=== PATIENT | female | born 1960 | race Caucasian/White ===

== ENCOUNTER 2019-09-14 21:17 | Emergency (ER) | payer OTHER ==
[~2019-09-14] VITALS: Ht 165.1 cm; Wt 73.9 kg
[~2019-09-14 21:17] MED LIST: LEVOXYL125 MCG PO; LEXAPRO20 MG PO; NORCO 5-325 TA1 EACH PO; PREVACID30 MG PO; TAMOXIFEN CITRA20 MG PO; VITAMIN D1000 UNIT PO; WELLBUTRIN SR150 MG PO
--- OUTSIDE RECORDS SUMMARY | 2019-09-14 21:22 | XMS ---
PreManage Notification: KEIRA LINK Security Manager Residential Events No recent Security Events currently on file [facility] There are no care providers on record at this time. Therese has no Care Guidelines for this patient. [place] VISIT COUNT (12 MO.) 1 AVTAR Cook TOTAL 1 NOTE: Visits indicate total known visits. ED/UCC VISIT TRACKING (12 MO.) 09/14/2019 21:18 AVTAR Reyes OR TYPE: Emergency COMPLAINT: - R HIP PAIN/INJ INPATIENT VISIT TRACKING (12 MO.) No inpatient visits to display in this time frame [email or web address]
[2019-09-14] MEDS ORDERED: ALPRAZOLAM0.5 MG PO (21:34)
[2019-09-14] MEDS ORDERED: EXEMESTANE25 MG PO (21:34)
[2019-09-14] MEDS ORDERED: BUPROPION XL150 MG PO (21:34)
[2019-09-14] MEDS ORDERED: DIAZEPAM5 MG PO (21:35)
[2019-09-14] MEDS ORDERED: ESCITALOPRAM OX20 MG PO (21:36)
[2019-09-14] MEDS ORDERED: VENTOLIN HFA18 GM INH (21:38)
[2019-09-14] MEDS ORDERED: LIOTHYRONINE SO5 MCG PO (21:38)
[2019-09-14] MEDS ORDERED: LEVOTHYROXINE112 MCG PO (21:38)
[2019-09-14] MEDS ORDERED: CETIRIZINE HCL10 MG PO (21:39)
== END 2019-09-14 23:10 | disposition home or self-care (01) ==
LOC: ED 21:17
DX: S70.01XA Contusion of right hip, initial encounter (principal); E03.9 Hypothyroidism, unspecified; K21.9 Gastro-esophageal reflux disease without esophagitis; Z87.891 Personal history of nicotine dependence; Z88.0 Allergy status to penicillin; Z88.2 Allergy status to sulfonamides; Z79.899 Other long term (current) drug therapy; X58.XXXA Exposure to other specified factors, initial encounter
CPT/HCPCS: 73502; 99283-25

== ENCOUNTER 2022-07-29 12:47 | Day surgery (SDC) | payer OTHER ==
[~2022-07-29] VITALS: Ht 165.1 cm; Wt 70.0 kg
[~2022-07-29 12:47] MED LIST changes: +ALPRAZOLAM0.5 MG PO; +BUPROPION XL150 MG PO; +CETIRIZINE HCL10 MG PO; +DIAZEPAM5 MG PO; +ESCITALOPRAM OX20 MG PO; +EXEMESTANE25 MG PO; +LEVOTHYROXINE112 MCG PO; +LIOTHYRONINE SO5 MCG PO; +VENTOLIN HFA18 GM INH
[2022-07-29 13:13] VITALS: BP 141/69
[2022-07-29] MEDS ORDERED: OMEPRAZOLE20 MG PO (13:24)
--- NOTE | 2022-07-29 15:00 | NUR ---
07/29/22 1500 Char Castaneda PT TO PACU ALERT AND AWAKE DENIES PAIN AND NAUSEA.
[2022-07-29 15:33] VITALS: BP 121/58
--- NOTE | 2022-07-29 18:30 | OR ---
[facility] [address], [place] [address] Signed DATE OF OPERATION: 07/29/2022 SURGEON: Stuart Sierra MD PREOPERATIVE DIAGNOSES: 1. Longstanding gastroesophageal reflux. 2. Colon screening. POSTOPERATIVE DIAGNOSES: 1. Small hiatal hernia, otherwise normal. 2. Diverticulosis sigmoid and left colon. PROCEDURES: 1. Esophagogastroduodenoscopy with biopsy. 2. Total colonoscopy to cecum. ANESTHESIA: Intravenous sedation; fentanyl 200 mcg and Versed 10 mg (total). INDICATION: This 61-year-old woman is a patient of SARA Esteban. She is well known to me from the past for breast cancer treatment. She underwent colonoscopy and upper endoscopy in 2008 at [place]. She is known to have reflux disease and does take omeprazole on a routine basis. Additionally, she is said to have family history of colon cancer in her mother. She is admitted at this time to undergo upper endoscopy and colonoscopy for surveillance. She understands the risk of bleeding, infection, perforation, and wishes to proceed. FINDINGS: Upper endoscopy showed a hiatal hernia but no sign of active esophagitis so far as could be told. She had some reactive gastric polyps. CLOtest was negative 30 minutes post procedure. On colonoscopy, her prep was quite excellent. Complete colonoscopy was undertaken of the cecum. There was no evidence of polyps or colitis, but she did have a relatively generous diverticula and left colonic diverticulosis. DESCRIPTION OF PROCEDURE: The patient was brought to the endoscopy suite and given topical lidocaine hypopharyngeal anesthesia and placed in lateral decubitus position. A bite block was placed after satisfactory intravenous sedation. Full cardiopulmonary monitoring was maintained. Electronically Signed By: STUART SIERRA MD 07/29/22 1830 PATIENT NAME: KEIRA LINK OPERATIVE REPORT DATE OF : 64 REPORT #: [id number] PHYSICIAN: STUART SIERRA MD PCP: MICHELLE KIRK REPORT IS CONFIDENTIAL AND NOT TO BE RELEASED WITHOUT AUTHORIZATION [facility] [address], [place] [address] Signed An Olympus video upper endoscope was passed in the hypopharynx and the vocal cords were visualized as normal. The scope was advanced to the esophagus, throughout its length it was normal. The scope was passed to the stomach, which was insufflated with air. Rugal folds appeared normal. There was no sign of excessive gastric fluid. The scope was passed to the antrum, which was normal as was the pylorus and passed through it into the duodenal which was normal. Biopsies were taken of the duodenum to assess for celiac disease. The scope was withdrawn. A biopsy was then taken of the antrum for both RAJESH and pathologic testing. Retroflexed view showed a hiatal hernia, small to moderate in size. Retroflexed view on withdrawal allowed the entire scope to be within the distal esophagus. The scope was straightened and withdrawn and biopsies were taken of the distal esophagus, though there was no evidence of Peña epithelium, stricture or neoplasm. The mid esophagus was biopsied as well. The scope was further withdrawn. There were no other findings of concern. Plans were made for colonoscopy. Additional sedation was given. Digital rectal examination was normal. An Olympus video colonoscope was passed in the rectum and manipulated throughout the colon noting numerous diverticula of the sigmoid and left colon. The scope was ultimately advanced to the cecum. The ileocecal valve and appendiceal orifice appeared normal. Scope was withdrawn from that point and no findings other than the diverticulosis was noted. Retroflexed view of the rectum was normal. Scope was straightened, withdrawn and removed. The patient was taken to the recovery room in good condition. CONCLUDING DIAGNOSES: 1. Upper endoscopy with small hiatal hernia. No evidence of Peña epithelium, stricture or neoplasm. 2. Colon with diverticulosis, but no sign of polyps. PLAN: Recommend repeat colonoscopy in 5 years based on family history, sooner if symptoms should develop. She will remain on omeprazole at this point regarding her reflux symptoms which are well controlled and use of them in this setting is safe. She will return to the ongoing care of SARA Esteban. Stuart Sierra MD JM/MODL Electronically Signed By: STUART SIERRA MD 07/29/221829 PATIENT NAME: KEIRA LINK OPERATIVE REPORT DATE OF : 64 REPORT #: [id number] PHYSICIAN: STUART SIERRA MD PCP: MICHELLE KIRK REPORT IS CONFIDENTIAL AND NOT TO BE RELEASED WITHOUT AUTHORIZATION [facility] [address], [place] [address] Signed /[id number] cc: SARA Esteban Copies: MICHELLE KIRK ~ Electronically Signed By: STUART SIERRA MD 07/29/22 1830 PATIENT NAME: KEIRA LINK OPERATIVE REPORT DATE OF : 64 REPORT #: [id number] PHYSICIAN: STUART SIERRA MD PCP: MICHELLE KIRK REPORT IS CONFIDENTIAL AND NOT TO BE RELEASED WITHOUT AUTHORIZATION
--- NOTE | 2022-08-07 16:17 | PATH ---
[facility] [address] [place], [place] [address] Signed THIS IS AN ADDENDUM REPORT SPECIMEN(S): A DUODENAL BIOPSY SPECIMEN(S): B ANTRUM/PYLORUS POLYP SPECIMEN(S): C STOMACH BIOPSY SPECIMEN(S): D DISTAL LOWER ESOPHAGEAL BIOPSY SPECIMEN(S): E MIDDLE ESOPHAGEAL BIOPSY SPECIMEN SOURCE: A. DUODENAL BIOPSY B. ANTRUM/PYLORUS POLYP C. STOMACH BIOPSY D. DISTAL LOWER ESOPHAGEAL BIOPSY E. MIDDLE ESOPHAGEAL BIOPSY CLINICAL HISTORY: Surveillance colonoscopy; GERD; family history of colon cancer. Postop: Small hiatal hernia, gastric polyp, diverticulosis FINAL PATHOLOGIC DIAGNOSIS: A. Duodenum, biopsy: - No significant histopathology. B. Stomach, antrum/pylorus, polypectomy: - Chemical gastropathy with villiform transformation. - No evidence of neoplasia. C. Stomach, biopsy: - Portions of oxyntic mucosa with microcystic change and features suggestive of proton-pump inhibitor therapy. D. Distal lower esophagus, biopsy: - Portions of unremarkable squamous mucosa. E. Middle esophagus, biopsy: - Portions of unremarkable squamous mucosa. COMMENT: Regarding specimen A, the sections from the duodenal biopsy show portions of duodenal mucosa with long finger-like villi. There is no villous atrophy, crypt hyperplasia or intraepithelial lymphocytosis, making a diagnosis of celiac disease unlikely. There is no evidence of peptic duodenitis, microorganisms, abnormal infiltrates or neoplasia. Regarding specimen B, the sections demonstrate antral mucosa with villiform PATIENT NAME: KEIRA LINK PATHOLOGY DATE OF : 64 REPORT #: [id number] PHYSICIAN: HUGO SEN PCP: MICHELLE KIRK REPORT IS CONFIDENTIAL AND NOT TO BE RELEASED WITHOUT AUTHORIZATION [facility] [address], [place] [address] Signed transformation, consistent with features seen in chemical gastropathy. Chemical gastropathies are most commonly seen in individuals with alkaline reflux from the duodenum or in patients with exposure to drugs or other chemicals. The degree of villiform transformation that is present may have made this lesion appear as a polyp at the time of endoscopy. There is no evidence of a hyperplastic, inflammatory, or adenomatous polyp. There is no acute or chronic inflammation present. There is no evidence of H. pylori, intestinal metaplasia, abnormal infiltrates, or neoplasm. Regarding specimen C, the sections through the specimen labeled gastric polyp show portions of oxyntic mucosa with microcyst formation. There is a prominent snouting of the parietal cells. These features are most commonly seen in individuals on proton-pump inhibitors. There is no evidence of acute or chronic inflammation. There is no evidence of H. pylori, intestinal metaplasia, abnormal infiltrates, or neoplasms. Regarding specimens D and E, the esophageal biopsies show normal-appearing squamous epithelium. There is no evidence of acute or chronic inflammation. TWK:em:C2NR MICROSCOPIC EXAMINATION: Histologic sections of all submitted blocks are examined by light microscopy. These findings, together with the gross examination, support the pathologic diagnosis. GROSS DESCRIPTION: A. The specimen, labeled and designated "Betsy, Agnes, 1," and designated on the requisition "duodenal biopsy," is received in formalin and consists of three bashir soft tissue fragments that measure 0.2 to 0.4 cm in greatest dimension. The specimen is entirely submitted in (A1). B. The specimen, labeled and designated "Betsy, R, 2," and designated on the requisition "antrum/pylorus polyp," is received in formalin and consists of three bashir soft tissue fragments that measure 0.3 to 0.5 cm in greatest dimension. The specimen is entirely submitted in (B1). C. The specimen, labeled and designated "Betsy, R, 3," and designated on the requisition "stomach biopsy," is received in formalin and consists of one bashir soft tissue fragment that is 0.3 cm in greatest dimension. The specimen is entirely submitted in (C1). D. The specimen, labeled and designated "Betsy, R, 4," and designated on the PATIENT NAME: KEIRA LINK PATHOLOGY DATE OF : 64 REPORT #: [id number] PHYSICIAN: HUGO SEN PCP: MICHELLE KIRK REPORT IS CONFIDENTIAL AND NOT TO BE RELEASED WITHOUT AUTHORIZATION [facility] [address], [place] [address] Signed requisition "distal, lower esophagus biopsy," is received in formalin and consists of one white-bashir soft tissue fragment that measures 0.6 cm in greatest dimension. The specimen is entirely submitted in (D1). E. The specimen, labeled and designated "Betsy, R, 5," and designated on the requisition "middle esophagus biopsy," is received in formalin and consists of two white-bashir soft tissue fragments that measure 0.4 and 0.6 cm in greatest dimension. The specimen is entirely submitted in (E1). FB (under the direct supervision of a pathologist) The Gross Description was prepared using a voice recognition system. The report was reviewed for accuracy; however, sound-alike word errors, addition and/or deletions may occur. If there is any question about this report, please contact Client Services. PERFORMING LABORATORY: The technical component was performed by [facility] [address] [place] [id number] (CLIA# [id number]). The professional interpretation was performed by [facility], [facility], [address] [place] [place] [place] [address] (CLIA#: [id number]). ADDITIONAL NOTES: Immunohistochemical and/or in situ hybridization studies were performed on this case with the appropriate positive controls that react as expected. This test was developed and its performance characteristics determined by [facility] It has not been cleared or approved by the U.S. Food and Drug Administration. The FDA has determined that such clearance or approval is not necessary. This test is used for clinical purposes. It should not be regarded as investigational or for research. [facility] is certified under the Clinical Laboratory Improvement Amendments of 1988 (CLIA) as qualified to perform high complexity clinical laboratory testing. This assay has not been validated for specimens that have been decalcified. REASON FOR ADDENDUM: To add results of additional testing on specimen B. ADDENDUM COMMENT: Helicobacter pylori immunohistochemical stain is negative. Control slide stained appropriately positive. There is no change in the above diagnosis. TWK:emh PATIENT NAME: KEIRA LINK PATHOLOGY DATE OF : 64 REPORT #: [id number] PHYSICIAN: [facility] PCP: MICHELLE KIRK REPORT IS CONFIDENTIAL AND NOT TO BE RELEASED WITHOUT AUTHORIZATION [facility] [address] [facility] [place], [place] [address] Signed Diagnostician: Danish Simpson MD Pathologist Electronically Signed 08/07/2022 Copies: ~ PATIENT NAME: KEIRA LINK PATHOLOGY DATE OF : 64 REPORT #: [id number] PHYSICIAN: [facility] PATH[facility] PCP: MICHELLE KIRK REPORT IS CONFIDENTIAL AND NOT TO BE RELEASED WITHOUT AUTHORIZATION
== END 2022-07-29 15:45 | disposition home or self-care (01) ==
LOC: OPS 12:47 → DS 12:51 → OPS 14:00
PROVIDERS: ATTEND Surgery
DX: Z12.11 Encounter for screening for malignant neoplasm of colon (principal); K57.30 Diverticulosis of large intestine without perforation or abscess without bleeding; K31.89 Other diseases of stomach and duodenum; K44.9 Diaphragmatic hernia without obstruction or gangrene; K21.9 Gastro-esophageal reflux disease without esophagitis; Z80.0 Family history of malignant neoplasm of digestive organs; Z80.3 Family history of malignant neoplasm of breast; Z85.3 Personal history of malignant neoplasm of breast
CPT/HCPCS: 43239; G0105; 99153; G0500; J2250; J3010; J7121